=== PATIENT | female | born 1985 | race Caucasian/White ===

== ENCOUNTER → 2019-09-23 17:00 | Outpatient (CLI) | payer OTHER, MEDICAID, SELFPAY | PROVIDERS: Visit Provider Nurse Practitioner | DX: S81.801A Unspecified open wound, right lower leg, initial encounter (principal) | CPT/HCPCS: 87070; 87075; 87077; 87147; 87186; 87205 ==

== ENCOUNTER → 2020-10-07 15:48 | Outpatient (CLI) | payer OTHER, MEDICAID, SELFPAY ==
[2020-10-07 17:36] LABS: Hematocrit 45.3 % (36-46); Hemoglobin 15.4 g/dL (12.0-16.0); Mean Corpuscular Hemoglobin 30.1 PG (26-34); Mean Corpuscular Volume 88.5 fL (80-100); Platelet Count 218 X10^3/uL (150-400); Red Blood Cell Count 5.12 X10^6/uL (4.0-5.2); Red Cell Distribution Width 12.9 % (11.6-14.8); White Blood Cell Count 8.3 X10^3/uL (4.5-11.0)
[2020-10-07 17:49] LABS: Alanine Aminotransferase 20 IU/L (<35); Albumin 4.9 g/dL (3.5-5.0); Albumin Globulin Ratio 1.6 (1.0-2.8); Alkaline Phosphatase 88 U/L (38-126); Aspartate Aminotransferase 23 IU/L (14-36); BUN Creatinine Ratio 21.7 (6-22); Bilirubin Total 0.5 mg/dL (0.2-1.3); Blood Urea Nitrogen 13 mg/dL (7-17); Calcium 9.9 mg/dL (8.4-10.2); Carbon Dioxide 24 mmol/L (22-32); Chloride 106 mmol/L (98-107); Cholesterol 147 mg/dL (140-199); Estimated Glomerular Filt Rate > 60.0 mL/min (>60); Glucose 89 mg/dL (70-100); HDL Cholesterol 59 mg/dL (40-60); HEMOLYSIS < 15 (0-50); LDL Cholesterol Calculated 71 mg/dL (<100); Potassium 4.1 mmol/L (3.4-5.1); Sodium 139 mmol/L (137-145); Total Protein 7.9 g/dL (6.3-8.2); Triglycerides 84 mg/dL (35-150)
[2020-10-07 18:18] LABS: TSH w/ Reflex to FT4 1.44 uIU/mL (0.47-4.68)
== END ==
PROVIDERS: PCP Nurse Practitioner Family; Referring Provider Nurse Practitioner Family; Visit Provider Nurse Practitioner Family
DX: Z00.00 Encounter for general adult medical examination without abnormal findings (principal); Z13.6 Encounter for screening for cardiovascular disorders; R53.83 Other fatigue
CPT/HCPCS: 36415; 80053; 80061; 84443; 85027

== ENCOUNTER → 2020-10-07 17:21 | Outpatient (CLI) | payer OTHER, MEDICAID, SELFPAY ==
--- NOTE | 2020-10-07 17:24 | DI.RAD.S_ITS ---
PROCEDURE: XR ANKLE RT MIN 3V INDICATIONS: r ankle pain TECHNIQUE: 3 views of the ankle were acquired. COMPARISON: None. FINDINGS: Bones: No fractures or dislocations. Ankle mortise is normally aligned. No suspicious bony lesions. Soft tissues: No tibiotalar joint effusion. There is mild soft tissue swelling over the lateral malleolus. Achilles tendon appears normal. IMPRESSION: 1. No fracture or dislocation. Dictated by: Elvis Cisneros M.D. on 10/07/2020 at 17:11 Approved by: Elvis Cisneros M.D. on 10/07/2020 at 17:12
== END ==
PROVIDERS: PCP Nurse Practitioner Family; Referring Provider Physician Assistant; Visit Provider Physician Assistant
DX: M25.571 Pain in right ankle and joints of right foot (principal)
CPT/HCPCS: 73610

== ENCOUNTER 2024-10-30 08:05 | Day surgery (SDC) | payer OTHER, SELFPAY ==
[2024-10-23 14:18] VITALS: BMI 37.9
--- NOTE | 2024-10-30 07:32 | PM.GYNHP.1 ---
History of Present Illness History of Present Illness Narrative: Andreina Andres is a 38 year old female 2 para 2 with a non healed obstetrical laceration site. She is here for excision of granulation tissue and repair of nonhealing obstetrical laceration site. FOR[facility]LY [facility], LATER [facility] Medical History Encounter for wellness examination in adult (10/14/20) Encounter for routine gynecological examination (10/14/20) Anxiety (~2019) Chicken pox (~1987) Abnormal Pap smear of cervix (~2015) Hypertension (~2019) Depression (2019) Fatigue (03/2020) Surgical History History of section (~03/10/20) Family History (Updated 10/07/20 @ 20:43 by Geno Brown) Mother Cancer Social History household members: significant other and children Smoking Status: Former smoker Tobacco: How many years used: 2 second hand exposure: No alcohol intake: current substance use type: does not use Meds Home Medications and Allergies Home Medications Medication Instructions Recorded Confirmed Type docosahexaenoic acid 200 mg mg PO 09/30/20 10/19/24 History capsule (Algal [place]-3 DHA) prenat.vits,teofilo,wtd-oxgn-hznvd 1 tab PO DAILY 09/30/20 10/19/24 History Triple Nipple Ointment 30g #1 ea 03/06/21 10/19/24 Rx Allergies Allergy/AdvReac Type Severity Reaction Status Date / Time Penicillins Allergy Hives Verified 10/30/24 08:26 Sulfa (Sulfonamide Allergy Hives Verified 10/30/24 08:26 Antibiotics) Exam Narrative Exam Narrative: HEENT: No thyromegaly, no anterior cervical or supraclavicular lymphadenopathy. Lungs:Clear to auscultation bilaterally, no wheezes. Cardiovascular: Regular rate and rhythm, no murmurs, rubs, or gallops. Abdomen: Well-healed Pfannenstiel scar. No hepatosplenomegaly. No masses palpable. External genitalia: Granulation tissue of the perineum and inside the vagina. There is a small flap of skin on the left side of the introitus. Vagina: Granulation tissue at introitus. Cervix: Normal Bimanual exam: 6 Week size anteverted uterus. Mobile. Extremities: No edema Assessment & Plan Assessment & Plan narrative: Assessment: 38-year-old 2 para 2 with granulation tissue and nonhealing of an obstetrical laceration site Plan: Excision of granulation tissue and repair of obstetrical laceration site The risks, benefits, and alternatives to the procedure were explained to the patient. The risks including bleeding and infection. She understands these risks and agrees to proceed. A full par Q was held and consent form was signed. Time-Based Coding :: [TOTAL MINUTES] spent with patient and on the chart (including review of chart, obtaining history, exam, reviewing outside data, placing orders, documenting exam and treatment plan, and counseling patient) on [DATE].
--- NOTE | 2024-10-30 07:35 | PM.PREOP ---
Pre-operative Note Interval Note History & Physical reviewed/Exam performed by Physician: Yes Changes to H&P: No H&P completed within 30 days and has changed as indicated here:: 10/30/24
[2024-10-30 08:27] VITALS: BP 132/93; PULSE 87; RESP 16; TEMP 36.2; O2SAT 96
[2024-10-30] MEDS: SCOPOLAMINE 1 PATCH TOP (08:31)
[2024-10-30] MEDS: ACETAMINOPHEN IV 1,000 MG/100 ML VIAL 400 MG IV (08:31)
[2024-10-30 08:34] VITALS: BMI 37.9
[2024-10-30] MEDS: LACTATED RINGERS 1,000 ML 21 ML IV (08:51)
[2024-10-30] MEDS: CEFAZOLIN 2 GM/100 ML PREMIX 100 ML IV (09:10)
--- NOTE | 2024-10-30 09:13 | SUR.OPER ---
Lithotomy on padded OR bed, head on pillow, arms secured on padded arm boards at <90 degrees abduction. Legs secured in padded yellow fins stirrups.
[2024-10-30] MEDS: BUPIVACAINE 0.5% W/ EPI (PF) 30 ML VIAL INJ (09:31)
--- NOTE | 2024-10-30 09:59 | PM.GYNOP.1 ---
Operative Date/Time/Diagnoses Date of procedure: 10/30/24 Time of procedure: 09:59 Pre-op diagnosis: Granulation tissue of obstetrical laceration site Nonhealing obstetrical laceration site Post-op diagnosis: same Procedure & Clinicians Procedure: Procedures Operation Date: 10/30/24 09:15 <No data on this case meets the specified criteria> Indications: 38-year-old 2 para 2 with granulation tissue at the obstetrical laceration site Nonhealing obstetrical laceration site Surgeon: Lillian Weiss Anesthesia Type: General (LMA) and Local Operative Notes Findings: Granulation tissue on the perineum and inside the vagina A flap of tissue that is unhealed from the left perineum Closure Type: primary Specimen(s): none Estimated blood loss (mL): 10 Blood products transfused: none Procedure in detail: After informed consent was obtained, the patient was taken to the operating room where she was placed in the dorsal supine position. After LMA general anesthesia was achieved, she was placed in the dorsal lithotomy position, and prepped and draped in the usual sterile fashion. A time-out was performed. 12 cc of 0.5% Marcaine with epinephrine were injected under the proposed resection site. A triangular piece of skin and underlying tissue including granulation tissue was excised from proximally 4 mm inside the vagina down onto the perineum approximately 1 cm. The granulation/scar tissue was excised using the Metzenbaum scissors. The Bovie was used for hemostasis. Deeper sutures were placed with 2-0 Vicryl interrupted. The skin was closed with 2-0 chromic with interrupted sutures. There was a small area on the right vulva where the skin . For 0 chromic was used with simple interrupted sutures to reapproximate this area. The area was copiously irrigated with warm normal saline. No bleeding was noted. Sponge, lap, and instrument counts were correct x2. The patient tolerated the procedure well, and was taken to PACU in stable condition. Complications: none Post-operative Condition: stable Disposition: PACU Plan for aftercare: Home after recovery
[2024-10-30 10:04] VITALS: BP 124/69; PULSE 106; RESP 14; TEMP 36.8; O2SAT 91
[2024-10-30 10:09] VITALS: BP 126/83; PULSE 104; RESP 18; O2SAT 91
[2024-10-30 10:14] VITALS: BP 125/81; PULSE 78; RESP 18; O2SAT 92
[2024-10-30] MEDS: KETOROLAC 30 MG/ML VIAL IV (10:35)
[2024-10-30 11:15] VITALS: BP 115/78; PULSE 83; RESP 16; TEMP 36.1; O2SAT 99
== END 2024-10-30 11:40 | disposition home or self-care (01) ==
PROVIDERS: Referring Provider Obstetrics & Gynecology; Visit Provider Obstetrics & Gynecology
PROC: (CPT 59300; principal; 2024-10-30 09:15)
DX: A58 Granuloma inguinale (principal); O90.1 Disruption of perineal obstetric wound
CPT/HCPCS: 59300; J0131; J0690; J1100; J1885; J2250; J2405; J2704; J3010

== ENCOUNTER → 2025-05-28 14:48 | Outpatient (CLI) | payer OTHER, SELFPAY ==
[2025-05-28 15:24] LABS: Hemoglobin A1C% w Est Avg Glu 5.5 % (4.0-6.0)
[2025-05-28 16:10] LABS: Thyroid Stimulating Hormone 0.987 uIU/mL (0.47-4.68)
[2025-05-28 20:25] LABS: Alanine Aminotransferase 28 IU/L (<35); Albumin 4.9 g/dL (3.5-5.0); Albumin Globulin Ratio 1.8 (1.0-2.8); Alkaline Phosphatase 123 U/L (38-126); Blood Urea Nitrogen 15 mg/dL (7-17); Calcium 10.4 mg/dL (8.4-10.2); Carbon Dioxide 20 mmol/L (22-32); Chloride 107 mmol/L (98-107); Cholesterol 147 mg/dL (140-199); Estimated Glomerular Filt Rate > 60 mL/min (>60); Globulin 2.8 g/dL (1.7-4.1); Glucose 93 mg/dL (70-99); HDL Cholesterol 63 mg/dL (40-60); Potassium 4.7 mmol/L (3.4-5.1); Sodium 138 mmol/L (137-145); Total Protein 7.7 g/dL (6.3-8.2); Triglycerides 104 mg/dL (35-150)
[2025-05-28 20:26] LABS: HEMOLYSIS 124 (0-50)
== END ==
PROVIDERS: PCP Family Medicine; Referring Provider Family Medicine; Visit Provider Family Medicine
DX: I10 Essential (primary) hypertension (principal)
CPT/HCPCS: 36415; 80053; 80061; 83036; 84443